=== PATIENT | female | born 1965 | race Caucasian/White ===

== ENCOUNTER → 2017-07-21 | Outpatient (CLI) | payer SELFPAY | LOC: ZCOL.LAB 17:56 | DX: R10.2 Pelvic and perineal pain (principal); R33.8 Other retention of urine; Z87.440 Personal history of urinary (tract) infections ==

== ENCOUNTER 2019-06-14 11:58 | Day surgery (SDC) | payer MEDICAID ==
[2019-06-14] VITALS (9 sets, daily range): BP systolic 123–156; BP diastolic 41–71; PULSE 58–67; TEMP 98–98.1
[~2019-06-14] VITALS: Ht 167.6 cm; Wt 87.7 kg
--- NOTE | 2019-06-14 13:10 | NUR ---
Pt to [facility] bay 1 via cart from PACU. Pt drowsy, but awake. Pt denies pain or nausea. Water given. Suprapubic catheter draining yellow urine with sediment noted. O2 on at 2 liters via nasal canula. Call light within reach.
[2019-06-14] MEDS ORDERED: IBU800 M1 PO (13:19)
[2019-06-14] MEDS ORDERED: WELCHOL 625MG625 MG PO (13:20)
[2019-06-14] MEDS ORDERED: ZOLOFT 100MG100 MG PO (13:22)
[2019-06-14] MEDS ORDERED: VASOTEC 2.2.5 MG/TAB PO (13:22)
--- NOTE | 2019-06-14 13:25 | NUR ---
Pt continues to rest. Dozing on and off. Will continue to monitor. Call light within reach.
[2019-06-14] MEDS ORDERED: LIORESAL20 MG PO (13:29)
[2019-06-14] MEDS ORDERED: SYMMETREL100 MG PO (13:30)
[2019-06-14] MEDS ORDERED: DITROPAN 5MG TAB5 MG PO (13:30)
[2019-06-14] MEDS ORDERED: PEPCID 20MG TAB20 MG PO (13:31)
[2019-06-14] MEDS ORDERED: LOPRESSOR 225 MG/TAB PO (13:32)
[2019-06-14] MEDS ORDERED: VITAMIND3 5000 PO (13:33)
[2019-06-14] MEDS ORDERED: LANTUS SOLOS100 U/ML SQ (13:34)
[2019-06-14] MEDS ORDERED: FIASP 100100 UNIT/1 SQ (13:34)
[2019-06-14] MEDS ORDERED: LYRICA 75MG CAP75 MG PO (13:37)
[2019-06-14] MEDS ORDERED: [UNRECOGNIZED DRUG - OTHER] (13:37)
--- NOTE | 2019-06-14 13:40 | NUR ---
into see pt. Questions answered. Will continue to monitor. Call light within reach.
--- NOTE | 2019-06-14 15:55 | NUR ---
Pt denies pain or nausea. Does report "bladder spasms" that have caused some incontenince. Pericare provided, clean chux pads placed under pt, and brief applied. Will continue to monitor. Call light within reach.
--- NOTE | 2019-06-14 16:25 | NUR ---
Pt requests to get dressed. Pt is worried that her judd is not draining as she feels leaking with the bladder spasms. Explained to pt that this is common with the bladder spasms. Judd is draining and has had 120ml out while in SDC. Pt ok with this. Will change breif as we get her dressed.
--- NOTE | 2019-06-14 16:35 | NUR ---
IV site discontinued with all parts intact. Pt assisted with dressing. Pt transfered to wheel chair with sit to stand lift and 2 assist.
--- NOTE | 2019-06-14 17:00 | NUR ---
Discharge instructions reviewed. Pt voices understanding. Awaiting pt's brother for ride home. Pt watching tv. Will continue to monitor.
--- NOTE | 2019-06-14 17:45 | NUR ---
Pt escorted to private car via wheel chair. Pt assisted into vehicle using slide board. Pt assisted home by her brother.
== END 2019-06-14 17:45 | disposition home or self-care (01) ==
LOC: SDCO 11:58
DX: N21.0 Calculus in bladder (principal); Z87.440 Personal history of urinary (tract) infections; F32.9 Major depressive disorder, single episode, unspecified; E11.10 Type 2 diabetes mellitus with ketoacidosis without coma; I10 Essential (primary) hypertension; Z79.4 Long term (current) use of insulin; Z88.1 Allergy status to other antibiotic agents; Z88.8 Allergy status to other drugs, medicaments and biological substances; Z88.0 Allergy status to penicillin; Z88.2 Allergy status to sulfonamides; Z87.891 Personal history of nicotine dependence; Z82.5 Family history of asthma and other chronic lower respiratory diseases; Z80.1 Family history of malignant neoplasm of trachea, bronchus and lung; Z80.8 Family history of malignant neoplasm of other organs or systems; Z80.42 Family history of malignant neoplasm of prostate
CPT/HCPCS: C1769; J0690; J1100; J2405; J2704; J3010; J7030

== ENCOUNTER 2020-08-14 13:22 | Day surgery (SDC) | payer MEDICAID ==
[2020-08-14] VITALS (7 sets, daily range): BP systolic 128–157; BP diastolic 56–83; PULSE 57–65; TEMP 97.7–98
[~2020-08-14] VITALS: Ht 167.6 cm; Wt 90.0 kg
[~2020-08-14 13:22] MED LIST: DITROPAN 5MG TAB5 MG PO; FIASP 100100 UNIT/1 SQ; IBU800 M1 PO; LANTUS SOLOS100 U/ML SQ; LIORESAL20 MG PO; LOPRESSOR 225 MG/TAB PO; LYRICA 75MG CAP75 MG PO; PEPCID 20MG TAB20 MG PO; SYMMETREL100 MG PO; VASOTEC 2.2.5 MG/TAB PO; VITAMIND3 5000 PO; WELCHOL 625MG625 MG PO; ZOLOFT 100MG100 MG PO; [UNRECOGNIZED DRUG - OTHER]
--- NOTE | 2020-08-14 14:22 | NUR ---
Carlos Jacobson CRNA was notified that the patient ate some crackers and drank coffee with creamer between [id number] this morning. He was also notified of the patient's blood sugar result of 190. He verbalized understanding and has no further orders for the patient at this time.
--- NOTE | 2020-08-14 17:40 | NUR ---
Pt to [facility] bay 1 via cart from PACU. Pt drowsy, but awake and alert. Denies pain or nausea. Pt requests meal tray. Menue provided. Will continue to monitor. Call light within reach. Suprapubic catheter draning light yellow cloudy urine.
--- NOTE | 2020-08-14 17:55 | NUR ---
Pt continues to rest. Denies needs. Call light within reach.
--- NOTE | 2020-08-14 18:10 | NUR ---
Pt continues to rest. Denies needs. Call light within reach.
--- NOTE | 2020-08-14 18:25 | NUR ---
Pt resting. Denies pain or nausea. Call light within reach.
--- NOTE | 2020-08-14 18:55 | NUR ---
Pt wanting to get up to wheel chair while she waits on meal try to be delivered. Will assist pt with this.
--- NOTE | 2020-08-14 19:05 | NUR ---
IV site discontinued with all parts intact. Pt assisted with dressing. Pt request Statlock be removed. Pt states "I don't use it." Statlock removed per pt request. Pt assisted into wheel chair using [id number] lift and 2 assist. Pt's meal arrived and was served to her. Call light within reach.
--- NOTE | 2020-08-14 19:25 | NUR ---
Discharge instructions reviewed. Pt voices understanding.
--- NOTE | 2020-08-14 19:45 | NUR ---
Pt escorted to private car via wheel chair. Pt accompanied home by [facility].
== END 2020-08-14 19:45 | disposition home or self-care (01) ==
LOC: SDCO 13:22
DX: N21.0 Calculus in bladder (principal); K59.00 Constipation, unspecified; E11.9 Type 2 diabetes mellitus without complications; I10 Essential (primary) hypertension; N39.0 Urinary tract infection, site not specified; R33.8 Other retention of urine; G35 Multiple sclerosis; E11.65 Type 2 diabetes mellitus with hyperglycemia; E11.10 Type 2 diabetes mellitus with ketoacidosis without coma; F32.9 Major depressive disorder, single episode, unspecified; Z79.899 Other long term (current) drug therapy; Z79.4 Long term (current) use of insulin; Z88.8 Allergy status to other drugs, medicaments and biological substances; Z20.822 Contact with and (suspected) exposure to COVID-19; Z90.49 Acquired absence of other specified parts of digestive tract; Z88.0 Allergy status to penicillin; Z88.2 Allergy status to sulfonamides; Z87.891 Personal history of nicotine dependence
CPT/HCPCS: J0690; J1100; J2405; J2704; J3010; J7120

== ENCOUNTER 2023-04-11 19:07 | Inpatient (IN) | payer MEDICAID ==
[~2023-04-11] VITALS: Ht 167.6 cm; Wt 85.0 kg
[2023-04-11] MEDS ORDERED: NS 500 ML IV ONE (19:45)
[2023-04-11] MEDS ORDERED: fentaNYL 50 MCG/ML 2 ML VIAL IV PRN (19:45)
[2023-04-11] MEDS ORDERED: hydrALAZINE 20 MG/ML 1 ML VIAL IV ONE ×2 (20:00→20:30)
[2023-04-11 20:01] LABS: BASO # 0.1 K/mm3 (0.0-0.2); BASO % 0.4 % (0.0-2.0); EOS # 0.7 K/mm3 (0.0-0.7); EOS % 4.5 % (0.0-4.0); GRAN % 69.8 % (42.2-75.2); HEMATOCRIT 42.5 % (37.0-47.0); HEMOGLOBIN 13.7 g/dl (12.5-16.0); LYMPH # 3.2 K/mm3 (1.2-3.4); LYMPH % 20.1 % (20.0-51.0); MEAN CELL VOLUME 85 fl (80.0-100.0); MEAN CORPUSCULAR HEMOGLOBIN 28 pg (27-31); MEAN CORPUSCULAR HGB CONC 32 g/dl (33.0-37.0); MONO # 0.8 K/mm3 (0.1-0.6); MONO % 4.8 % (1.7-9.3); PLATELET COUNT 232 K/mm3 (130-400); RED BLOOD COUNT 4.98 M/mm3 (4.10-5.30); REDCELL DISTRIBUTION WIDTH-CV 14.8 % (11.5-14.5)
[2023-04-11 20:14] LABS: BILIRUBIN,TOTAL 0.4 mg/dL (0.2-1.2); CALCIUM 10.4 mg/dL (8.4-10.2); CREATININE, serum 1.17 mg/dL (0.57-1.11); POTASSIUM 4.1 mmol/L (3.5-4.5)
[2023-04-11] MEDS ORDERED: NS 64 ML IV SCH (20:22)
[2023-04-11] MEDS ORDERED: Iohexol 300 - 100 ML VIAL IV ONE (20:22)
[2023-04-11] MEDS ORDERED: Morphine 4 MG/ML VIAL IV PRN (21:00)
[2023-04-11] MEDS ORDERED: Ondansetron 4 MG/2 ML VIAL IV ONE (21:16)
[2023-04-11] MEDS ORDERED: cefTRIAXone 1 G in Water For Injection,Sterile 10 ML IV ONE (21:45)
[2023-04-11] MEDS ORDERED: LIORESAL20 MG PO ×3 (22:28→22:59)
[2023-04-11] MEDS ORDERED: LOPRESSOR 550 MG/TAB PO (22:30)
[2023-04-11] MEDS ORDERED: LIPITOR20 MG PO (22:30)
[2023-04-11] MEDS ORDERED: GLUCOPHAGE500 MG/TAB PO (22:30)
[2023-04-11] MEDS ORDERED: VASOTEC 2.2.5 MG/TAB PO (22:34)
[2023-04-11] MEDS ORDERED: MOTRIN 800800 MG/TAB PO (22:34)
[2023-04-11] MEDS ORDERED: LEVEMIR FLEX100 U/ML SQ (22:39)
[2023-04-11] MEDS ORDERED: INSULIN AS100 UNIT/3 SQ (22:39)
[2023-04-11] MEDS ORDERED: Baclofen 10 MG TAB PO PRN (23:00)
[2023-04-11] MEDS ORDERED: LR 1,000 ML IV SCH (23:15)
[2023-04-11] MEDS ORDERED: HYDROmorphone 0.5 MG/0.5 ML SYRINGE IV PRN (23:15)
[2023-04-11] MEDS ORDERED: Glucagon 1 MG VIAL IM PRN (23:30)
[2023-04-11] MEDS ORDERED: Dextrose 50% Water 25 GM/50 ML SYRINGE IV PRN (23:30)
[2023-04-11] MEDS ORDERED: Dextrose (Glucose) 15 GM (4 x 3.75 GM) Chewable TABLET PACK PO PRN (23:30)
[2023-04-12] VITALS (11 sets, daily range): BP systolic 111–197; BP diastolic 56–77; PULSE 80–114; TEMP 97.4–99.3
[2023-04-12] MEDS ORDERED: Insulin Aspart (NovoLOG) SQ SCH
[2023-04-12] MEDS ORDERED: hydrALAZINE 20 MG/ML 1 ML VIAL IV PRN (01:15)
--- NOTE | 2023-04-12 05:30 | NUR ---
PT ARRIVED TO THE MEDICAL FLOOR AROUND [id number] TO RM 308. PT A&O X 4; VSS; O2 RA. PT COMPLAINED OF BLADDER SPASMS/PAIN. PT GIVEN NORCO FOR THE SPASMS/PAIN. PT FELT THE PAIN MEDICATION WAS EFFECTIVE AFTER THE SECOND DOSE. PT DENIED CHEST PAIN, SOB, N,V,D OR DIZZINESS. ADMISSIONS ASSESSMENT AND MED REC COMPLETE. PT ORIENTED TO THE ROOM AND HOSPITAL POLICY. ALL QUESTIONS AND CONCERNS ADDRESSED. CALL LIGHT WITHIN REACH.
[2023-04-12 07:23] LABS: URINE APPEARANCE Cloudy (CLEAR/HAZY); URINE COLOR Yellow (YELLOW); URINE PROTEIN(semi-quant) 3+ (NEGATIVE)
[2023-04-12 07:26] LABS: URINE BLOOD 3+ (NEGATIVE); URINE GLUCOSE TRACE (NEGATIVE); URINE KETONE Negative (NEGATIVE); URINE NITRATE Positive (NEGATIVE); URINE UROBILINOGEN 0.2 E.U/dL (0.2-1.0)
[2023-04-12 07:27] LABS: SQUAMOUS EPITHELIAL 0-2 /hpf (0-10); URINE BACTERIA Occasional /hpf (NONE SEEN); URINE RBC >50 /hpf (0-2)
[2023-04-12 07:53] LABS: BASO % 0.3 % (0.0-2.0); EOS # 0.2 K/mm3 (0.0-0.7); EOS % 1.2 % (0.0-4.0); GRAN # 12.5 K/mm3 (1.4-6.5); GRAN % 78.3 % (42.2-75.2); HEMATOCRIT 39.3 % (37.0-47.0); HEMOGLOBIN 12.6 g/dl (12.5-16.0); LYMPH # 2.2 K/mm3 (1.2-3.4); MEAN CELL VOLUME 85 fl (80.0-100.0); MEAN CORPUSCULAR HEMOGLOBIN 27 pg (27-31); MEAN CORPUSCULAR HGB CONC 32 g/dl (33.0-37.0); MEAN PLATELET VOLUME 11.1 fl (7.4-10.4); MONO # 0.9 K/mm3 (0.1-0.6); MONO % 5.7 % (1.7-9.3); PLATELET COUNT 196 K/mm3 (130-400); RED BLOOD COUNT 4.62 M/mm3 (4.10-5.30); REDCELL DISTRIBUTION WIDTH-CV 15.4 % (11.5-14.5)
[2023-04-12] MEDS ORDERED: Baclofen 10 MG TAB PO SCH ×2 (08:00→21:00)
--- NOTE | 2023-04-12 08:00 | NUR ---
Patient is resting in bed, asks for her medications, explaned she has to be NPO until doctors check her. Assessment completed, no further needs at this time. Call light within reach.
[2023-04-12 08:06] LABS: CALCIUM 8.9 mg/dL (8.4-10.2); CREATININE, serum 1.34 mg/dL (0.57-1.11); POTASSIUM 4.6 mmol/L (3.5-4.5)
[2023-04-12] MEDS ORDERED: Metoprolol Tartrate 50 MG TAB PO SCH (09:00)
[2023-04-12] MEDS ORDERED: Oxybutynin 5 MG TAB PO SCH (09:00)
[2023-04-12] MEDS ORDERED: Famotidine 20 MG TAB PO SCH (09:00)
[2023-04-12] MEDS ORDERED: Sertraline 100 MG,Sertraline 50 MG PO SCH (09:00)
[2023-04-12] MEDS ORDERED: FLONASE NASAL S16 GM NS (09:25)
[2023-04-12] MEDS ORDERED: BENADRYL25 M2 PO (09:26)
--- NOTE | 2023-04-12 10:13 | NUR ---
Initial visit attempt; Technicians with patient, Sleep Manager left card offering God's blessings and information regarding the availability of Spiritual Care at our Hospital.
--- NOTE | 2023-04-12 12:21 | NUR ---
roll on worker met with patient to discuss discharge planning. Patient lives in [place], [place] with her niece, Vanna. Patient's PCP is Evangelina Rivera and preferred pharmacy is [facility] in [place]. No issues with affording medications at this time. Insurance is Medicaid through [employer]. Patient is primarily in a wheelchair and uses a shower bench when bathing. Patient reports she has homecare through [facility] and they come assist her with showering and cleaning her house a few days a week. Patient reports her son, Ck, will likely transport her home at time of discharge. Patient would like to return home at time of discharge. Best point of contacts are patient's son, Ck, P# [phone] or brother, Nitin, . SW contacted [facility] and confirmed patient has homecare services through them. [facility] would like to be notified when patient is ready for discharge. Discharge Plan: Home
[2023-04-12] MEDS ORDERED: Regadenoson 0.08 MG/ML 5 ML SYRINGE IV SCH (13:16)
[2023-04-12] MEDS ORDERED: Acetaminophen 325 MG TAB PO PRN (14:45)
[2023-04-12 15:34] LABS: COLLECTION METHOD CATHETER
--- NOTE | 2023-04-12 19:46 | NUR ---
Bedside report received from JOAN Fierro. Pt is awake in bed at this time watching tv with no complaints. Call light within reach.
[2023-04-12] MEDS ORDERED: Atorvastatin 20 MG TAB PO SCH (21:00)
[2023-04-12] MEDS ORDERED: cefTRIAXone 1 G in Water For Injection,Sterile 10 ML IV SCH (22:00)
[2023-04-13] VITALS (14 sets, daily range): BP systolic 110–137; BP diastolic 38–71; PULSE 72–94; TEMP 98.2–100
--- NOTE | 2023-04-13 02:04 | NUR ---
Shift assessment completed. VSS with a temperature of 100.0 reported to this nurse from PCT. Administered Tylenol as ordered. Pt has no complaints of pain. IV to Lt AC was pulled out by pt. Tip of IV catheter intact, pt reports no pain. 22g IV was started into Lt forearm. Pt tolerated well with no complaints. LR infusing into Lt forearm with no complications. Call light within reach.
--- NOTE | 2023-04-13 06:57 | NUR ---
Report given to JOAN Burr.
[2023-04-13 08:08] LABS: CREATININE, serum 1.16 mg/dL (0.57-1.11); POTASSIUM 3.9 mmol/L (3.5-4.5)
[2023-04-13 08:12] LABS: BASO # 0.1 K/mm3 (0.0-0.2); BASO % 0.4 % (0.0-2.0); EOS # 0.4 K/mm3 (0.0-0.7); EOS % 2.9 % (0.0-4.0); GRAN # 11.5 K/mm3 (1.4-6.5); GRAN % 82.4 % (42.2-75.2); HEMOGLOBIN 10.9 g/dl (12.5-16.0); LYMPH # 1.5 K/mm3 (1.2-3.4); LYMPH % 10.5 % (20.0-51.0); MEAN CELL VOLUME 86 fl (80.0-100.0); MEAN CORPUSCULAR HEMOGLOBIN 27 pg (27-31); MEAN CORPUSCULAR HGB CONC 32 g/dl (33.0-37.0); MEAN PLATELET VOLUME 11.9 fl (7.4-10.4); MONO # 0.5 K/mm3 (0.1-0.6); MONO % 3.2 % (1.7-9.3); PLATELET COUNT 169 K/mm3 (130-400); RED BLOOD COUNT 4.02 M/mm3 (4.10-5.30); REDCELL DISTRIBUTION WIDTH-CV 15.3 % (11.5-14.5)
[2023-04-13 08:21] LABS: HEMATOCRIT 34.6 % (37.0-47.0)
[2023-04-13] MEDS ORDERED: Hyoscyamine 0.125 MG Sublingual TAB SL PRN (11:15)
--- NOTE | 2023-04-13 11:27 | NUR ---
PATIENT ALERT AND ORIENTED X4. VSS. PATIENT HERE FOR HTN/UTI/FOREIGN BODY IN BLADDER. PATIENT DENIES ANY PAIN AT THIS TIME. SUPRAPUBIC CATH IN PLACE WITH RED OUTPUT. IV TO LEFT FA WITH LR RUNNING AT 150ML/HOUR. PATIENT TAKEN TO BATHROOM VIA WHEELCHAIR, GOWN AND LINENS CHANGED. PATIENT BACK TO BED, EATING BREAKFAST. BED ALARM ON. ASSESSMENT PERFORMED. AM MEDS ADMINISTERED. NO FURTHER NEEDS. CALL LIGHT IN REACH.
--- NOTE | 2023-04-13 15:21 | NUR ---
Vancomycin Initial Dosing Pharmacy Note Ordering provider: Nicole Meyers R., MD Indication/duration: UTI LABS: SCr 1.16, CrCl~54, GFR 56 Recommendation: Will start Vancomycin 1 gm IV q12h. Pharmacy will continue to closely monitor. Maintenance dose: 1 gram every 12 hours Trough goal: 10-15 ug/mL
--- NOTE | 2023-04-13 18:04 | NUR ---
PATIENT REQUESTS STOOL SOFTENER. VERBAL ORDER FROM DR HARPER FOR COLACE 100MG BID.
--- NOTE | 2023-04-13 20:45 | NUR ---
PT A&O X4 SITTING UP IN BED. VSS ON ROOM AIR. STATES SHE HAS RIGHT SIDED SHOULDER PAIN 6/, & WILL WAIT UNTIL ABLE TO HAVE PRN NORCO AGAIN. SUPRAPUBIC CATH TO DD WITH REDDISH OUTPUT & SEDIMENT. LR @ 150 INFUSING TO LEFT FOREARM. PT DENYING FURTHER NEEDS. CALL LIGHTS IN REACH & FALL PRECAUTIONS IN PLACE.
[2023-04-13] MEDS ORDERED: Docusate Sodium 100 MG CAP PO SCH (21:00)
[2023-04-13] MEDS ORDERED: diphenhydrAMINE 25 MG CAP PO PRN (23:45)
--- NOTE | 2023-04-13 23:48 | NUR ---
PT RESTING IN BED. RATING PAIN 4/10 AFTER PRN NORCO. STATES SHE FEELS VERY ITCHY & NORMALLY TAKES BENADRYL. HOSPITALIST AWARE & NEW ORDER FOR 25MG BENADRYL PO Q6 PRN.
[2023-04-14] VITALS (8 sets, daily range): BP systolic 129–132; BP diastolic 66–67; PULSE 82–85; TEMP 97.6–98
--- NOTE | 2023-04-14 02:39 | NUR ---
pt resting in bed with even& unlabored resp
[2023-04-14 07:11] LABS: BASO % 0.2 % (0.0-2.0); EOS # 0.6 K/mm3 (0.0-0.7); EOS % 5.6 % (0.0-4.0); GRAN # 7.6 K/mm3 (1.4-6.5); GRAN % 75.5 % (42.2-75.2); LYMPH # 1.5 K/mm3 (1.2-3.4); LYMPH % 15.3 % (20.0-51.0); MEAN CELL VOLUME 86 fl (80.0-100.0); MEAN CORPUSCULAR HGB CONC 31 g/dl (33.0-37.0); MEAN PLATELET VOLUME 11.1 fl (7.4-10.4); MONO # 0.3 K/mm3 (0.1-0.6); MONO % 2.9 % (1.7-9.3); PLATELET COUNT 152 K/mm3 (130-400); RED BLOOD COUNT 3.68 M/mm3 (4.10-5.30); REDCELL DISTRIBUTION WIDTH-CV 14.9 % (11.5-14.5)
[2023-04-14 07:14] LABS: HEMATOCRIT 31.8 % (37.0-47.0); HEMOGLOBIN 9.9 g/dl (12.5-16.0); MEAN CORPUSCULAR HEMOGLOBIN 27 pg (27-31)
[2023-04-14 07:27] LABS: ALBUMIN 2.6 gm/dL (3.5-5.0); BILIRUBIN,TOTAL 0.5 mg/dL (0.2-1.2); CALCIUM 8.7 mg/dL (8.4-10.2); CREATININE, serum 0.87 mg/dL (0.57-1.11); POTASSIUM 3.7 mmol/L (3.5-4.5); TOTAL PROTEIN 5.7 gm/dL (6.2-8.1)
--- NOTE | 2023-04-14 09:38 | NUR ---
Patient is resting in bed, states she has a headache, tylenol provided. States her abdominal pain is under control. Getting fluids per orders. Assessment completed meds given, no further needs at this time. Call light within reach.
[2023-04-14] MEDS ORDERED: ZYVOX 600MG600 MG PO (11:28)
[2023-04-14] MEDS ORDERED: Linezolid 600 MG TAB PO SCH (11:30)
[2023-04-14] MEDS ORDERED: LEVSIN0.125 M1 SL (11:34)
--- NOTE | 2023-04-14 16:46 | NUR ---
car worker was notified patient would be ready for discharge today. SW was notified by patient's nurse that patient has been a three person transfer but she states she transfers on her own at home. PHILLIP notified patient's doctor and they ordered PT eval. PHILLIP met with PT and OT whom expressed patient has home health established through [facility] and they are recommending she return home with home health. PHILLIP notified PAAntonina, breaker unit assembler and patient's nurse. PHILLIP notified [facility] of patient's discharge. PHILLIP faxed updates and discharge orders to [facility]. Patient also has homecare through [facility] for a bath aide. PHILLIP notified [facility] that patient is discharging today. Discharge plan: Home with Home Health
== END 2023-04-14 18:45 | disposition home health service (06) | DRG 872 ==
LOC: COL.ER 19:07 → MEDICAL 22:47
PROVIDERS: Hospitalist; Personal Emergency Response Attendant; ADMIT Internal Medicine
DX: A41.9 Sepsis, unspecified organism (principal); N39.0 Urinary tract infection, site not specified; N17.9 Acute kidney failure, unspecified; I16.0 Hypertensive urgency; N18.9 Chronic kidney disease, unspecified; E83.52 Hypercalcemia; G35 Multiple sclerosis; E11.8 Type 2 diabetes mellitus with unspecified complications; Z79.84 Long term (current) use of oral hypoglycemic drugs
CPT/HCPCS: A9500-JZ; J0360; J0696; J1815; J2270; J2405; J2785; J3010; J3370; J7040; J7050; J7120; Q9967

== ENCOUNTER 2023-12-28 13:07 | Day surgery (SDC) | payer MEDICAID ==
[~2023-12-28] VITALS: Ht 167.6 cm; Wt 83.6 kg
[~2023-12-28 13:07] MED LIST changes: +ASPIRIN E.C. 8181 MG PO; +BENADRYL25 M2 PO; +CATAPRES-TTS 10.1 M1 TD; +FLONASE NASAL S16 GM NS; +GLUCOPHAGE500 MG/TAB PO; +INSULIN AS100 UNIT/3 SQ; +LASIX 20MG TABL20 MG PO; +LEVEMIR FLEX100 U/ML SQ; +LEVSIN0.125 M1 SL; +LIPITOR20 MG PO; +LOPRESSOR 550 MG/TAB PO; +LR 1,000 ML IV SCH; +MOTRIN 800800 MG/TAB PO; +Meclizine 25 MG TAB PO SCH; +ZYVOX 600MG600 MG PO
[2023-12-28 14:41] VITALS: BP 151/98; PULSE 63; TEMP 97.5
[2023-12-28] MEDS ORDERED: Lidocaine PF 2% (20 MG/ML) 5 ML VIAL ONE (14:50)
[2023-12-28] MEDS ORDERED: NS 10 ML IV ONE (14:51)
[2023-12-28] MEDS ORDERED: fentaNYL 50 MCG/ML 2 ML VIAL ONE (15:54)
[2023-12-28] MEDS ORDERED: Ondansetron 4 MG/2 ML VIAL ONE (15:54)
[2023-12-28] MEDS ORDERED: dexAMETHasone 10 MG/ML VIAL ONE (15:54)
[2023-12-28] MEDS ORDERED: Naloxone 0.4 MG/ML VIAL IV PRN (16:30)
[2023-12-28] MEDS ORDERED: Hyoscyamine 0.125 MG Sublingual TAB SL PRN (16:30)
[2023-12-28] MEDS ORDERED: Acetaminophen 325 MG TAB PO PRN (16:30)
[2023-12-28] MEDS ORDERED: Ondansetron 4 MG/2 ML VIAL IV PRN ×2 (16:30→16:45)
[2023-12-28] MEDS ORDERED: hydrALAZINE 20 MG/ML 1 ML VIAL IV PRN (16:45)
[2023-12-28] MEDS ORDERED: fentaNYL 50 MCG/ML 1 ML SYRINGE/VIAL [PACU/SDC ONLY] IV PRN (16:45)
[2023-12-28 17:10] VITALS: BP 162/55; PULSE 72; TEMP 97.4
[2023-12-28 17:16] VITALS: TEMP 97.4
[2023-12-28 17:25] VITALS: BP 165/62; PULSE 66
[2023-12-28] MEDS ORDERED: Acetaminophen 500 MG TAB PO SCH (17:26)
[2023-12-28 17:40] VITALS: BP 154/64; PULSE 68
--- NOTE | 2023-12-28 18:00 | NUR ---
1710 RETURNS TO ROOM 2 PER CART WITH HOB ELEVATED 50 DEGREES. AWAKE, ALERT. RESP UNLABORED. VITAL SIGNS OBTAINED. ABD SOFT. SUPRAPUBIC CATH IN PLACE. DRAINS CLEAR, LIGHT PINK URINE. DENIES DISCOMFORT. CALL LIGHT AT SIDE 1725 TOLERATES PO JUICE WITHOUT NAUSEA. DISCHARGE INSTRUCTIONS REVIEWED. PATIENT VERBALIZES UNDERSTANDING. COPY PROVIDED IN DISCHARGE FOLDER 1740 DRESSES WITH 2 ASSIST 1750 SLIDE TRANSFERS TO WHEEL CHAIR WITH 2 ASSIST. SUPRAPUBIC CATHETER PATENT
== END 2023-12-28 18:00 | disposition home or self-care (01) ==
LOC: SDCO 13:07
DX: N21.0 Calculus in bladder (principal)
CPT/HCPCS: C1769; J0690; J1100; J1920; J2405; J2704; J3010; J7120